=== PATIENT | female | born 1960 ===

== ENCOUNTER 2019-07-23 22:43 | Emergency (ER) | payer OTHER ==
[~2019-07-23] VITALS: Ht 165.1 cm; Wt 79.4 kg
[~2019-07-23 22:43] MED LIST: KETO10TA2 PO; NORVASC2.5 M1
[2019-07-23] MEDS ORDERED: IRBESARTAN-HCT1 EAC1 (22:55)
[2019-07-23] MEDS ORDERED: AVAPRO300 MG (22:55)
[2019-07-23] MEDS ORDERED: NORVASC10 MG (22:56)
== END 2019-07-24 03:28 | disposition home or self-care (01) ==
LOC: ER 22:43
DX: I16.0 Hypertensive urgency (principal); I10 Essential (primary) hypertension